=== PATIENT | male | born 1970 | race Caucasian/White ===

== ENCOUNTER 2020-08-08 18:50 | Inpatient (IN) | payer OTHER ==
[2020-08-08] MEDS ORDERED: ACETAMINOPHEN 1000 MG/100 ML VIAL (NON FORMULARY) IVPB ONE (19:27)
[2020-08-08] MEDS ORDERED: LACTATED RINGERS SOLUTION 1000 ML INFUS.BAG IV ONE (19:28)
[2020-08-08] MEDS ORDERED: DEXAMETHASONE SOD PHOSPHATE 10 MG/1 ML VIAL IVPUSH ONE (19:31)
[2020-08-08 20:54] LABS: VENOUS BASE EXCESS 1.7 mmol/L (-2-2); VENOUS O2 SATURATION 65.6 % (70-80); VENOUS PH 7.454 (7.310-7.410)
[2020-08-08 20:56] LABS: BASO % 0.4 % (0-2.0); HEMATOCRIT 41.2 % (35.4-49); HEMOGLOBIN 14.3 GM/dL (11.7-16.9); LYMPH % 6.7 % (8-40); MCH 31.9 pg (25.7-33.7); MCHC 34.6 g/dl (32.0-35.9); MEAN CELL VOLUME 92.1 fl (80-96); MEAN PLT VOLUME 10.7 fl (7.5-11.1); MONO % 7.2 % (3.8-10.2); NEUT % 85.7 % (42.8-82.8); PLATELET COUNT 185 K/MM3 (134-434); RBC 4.48 M/mm3 (4.00-5.60); RDW 12.7 % (11.9-15.9); WHITE BLOOD COUNT 7.9 K/mm3 (4.0-10.0)
[2020-08-08 21:10] LABS: INR 1.26 (0.83-1.09); PROTHROMBIN TIME (PATIENT) 15.2 SEC (9.7-13.0)
[2020-08-08 21:12] LABS: ACTIVATED PTT 27.6 SECONDS (25.2-36.5)
[2020-08-08 21:29] LABS: CHLORIDE 99 mmol/L (98-107); SODIUM 132 mmol/L (136-145)
[2020-08-08] MEDS ORDERED: ACETAMINOPHEN INJECTION 100 ML IVPB ONE (21:32)
[2020-08-08] MEDS ORDERED: DEXAMETHASONE SOD PHOSPHATE 10 MG/1 ML VIAL ONE (21:32)
[2020-08-08 21:34] LABS: ANION GAP 8 MMOL/L (8-16); BLOOD UREA NITROGEN 16.5 mg/dL (7-18); CO2 25 mmol/L (21-32); GLUCOSE,RANDOM 122 mg/dL (74-106)
[2020-08-08 21:35] LABS: BILIRUBIN,DIRECT 0.2 mg/dL (0.0-0.2)
[2020-08-08 21:37] LABS: SGOT/AST 44 U/L (15-37); SGPT/ALT 55 U/L (13-61)
[2020-08-08 21:38] LABS: BILIRUBIN,TOTAL 0.7 mg/dL (0.2-1); TOT PROT 6.8 g/dl (6.4-8.2)
[2020-08-08 21:39] LABS: ALK PHOS 53 U/L (45-117)
[2020-08-08] MEDS ORDERED: AZITHROMYCIN IVPB 500 MG in DEXTROSE 5%-WATER - 250 ML IVPB ONE (21:51)
[2020-08-08] MEDS ORDERED: CEFTRIAXONE 1,000 MG in DEXTROSE 5%-WATER - 50 ML IVPB ONE (21:51)
[2020-08-08 22:15] LABS: LDH 385 U/L (87-246)
[2020-08-08] MEDS ORDERED: SODIUM CHLORIDE 500 ML IV STA (22:51)
[2020-08-08] MEDS ORDERED: ACETAMINOPHEN 325 MG TABLET (FP) PO PRN (22:51)
[2020-08-08] MEDS ORDERED: AZITHROMYCIN IVPB 500 MG/250 ML BAG IVPB ONE (22:56)
[2020-08-08] MEDS ORDERED: CEFTRIAXONE 1 GM/50 ML BAG ONE (22:56)
[2020-08-09 00:55] VITALS: BMI 27.8
[2020-08-09 08:12] LABS: HEMATOCRIT 38.3 % (35.4-49); HEMOGLOBIN 13.4 GM/dL (11.7-16.9); MCH 31.9 pg (25.7-33.7); MEAN CELL VOLUME 91.2 fl (80-96); MEAN PLT VOLUME 10.4 fl (7.5-11.1); PLATELET COUNT 196 K/MM3 (134-434); RDW 12.3 % (11.9-15.9); WHITE BLOOD COUNT 6.9 K/mm3 (4.0-10.0)
[2020-08-09 08:42] LABS: BLOOD UREA NITROGEN 14.5 mg/dL (7-18); CALCIUM 7.9 mg/dL (8.5-10.1)
[2020-08-09 08:43] LABS: ALBUMIN 2.7 g/dl (3.4-5.0); MAGNESIUM 2.6 mg/dL (1.8-2.4)
[2020-08-09 08:47] LABS: BILIRUBIN,TOTAL 0.5 mg/dL (0.2-1); CREATININE 0.8 mg/dL (0.55-1.3); PHOSPHOROUS 2.8 mg/dL (2.5-4.9)
[2020-08-09 08:48] LABS: TOT PROT 6.2 g/dl (6.4-8.2)
[2020-08-09] MEDS ORDERED: CHOLECALCIFEROL (VIT D3) 400 UNIT (10 MCG) TABLET PO SCH (10:00)
[2020-08-09] MEDS ORDERED: PT OWN MED DRAWER 7, Y5N ONE ×2 (11:16→11:26)
[2020-08-09] MEDS: ZINC SULFATE 220 MG CAPSULE (FP) PO SCH (11:19)
[2020-08-09] MEDS: FAMOTIDINE 20 MG TABLET PO SCH (11:19)
[2020-08-09] MEDS: DEXAMETHASONE SOD PHOSPHATE 10 MG/1 ML VIAL IVPUSH SCH (11:19)
[2020-08-09] MEDS: ASCORBIC ACID 500 MG TABLET (FP) PO SCH (11:19)
[2020-08-09] MEDS: ENOXAPARIN NA (PORCINE) 40 MG/0.4 ML DISP.SYRIN SQ SCH (11:20)
[2020-08-09] MEDS: BUDESONIDE/FORMETEROL FUMARATE 160/4.5 mcg INHALER IH SCH ×2 (11:28→21:23)
[2020-08-09] MEDS: ALBUTEROL SO4 HFA INHALER IH SCH ×3 (11:29→19:56)
[2020-08-09] MEDS ORDERED: REMDESIVIR 200 MG in SODIUM CHLORIDE 250 ML IVPB ONE (12:00)
[2020-08-10] MEDS: ALBUTEROL SO4 HFA INHALER IH SCH ×4 (07:52→21:35)
[2020-08-10 08:39] LABS: BASO % 0.1 % (0-2.0); HEMATOCRIT 39.1 % (35.4-49); HEMOGLOBIN 13.3 GM/dL (11.7-16.9); LYMPH % 4.1 % (8-40); MCH 31.8 pg (25.7-33.7); MEAN CELL VOLUME 93.5 fl (80-96); MEAN PLT VOLUME 11.1 fl (7.5-11.1); MONO % 4.4 % (3.8-10.2); NEUT % 91.4 % (42.8-82.8); PLATELET COUNT 251 K/MM3 (134-434); RBC 4.18 M/mm3 (4.00-5.60); RDW 12.7 % (11.9-15.9); WHITE BLOOD COUNT 16.5 K/mm3 (4.0-10.0)
[2020-08-10 09:04] LABS: CALCIUM 7.7 mg/dL (8.5-10.1)
[2020-08-10 09:05] LABS: ALBUMIN 2.7 g/dl (3.4-5.0); BLOOD UREA NITROGEN 16.1 mg/dL (7-18); MAGNESIUM 2.4 mg/dL (1.8-2.4)
[2020-08-10 09:06] LABS: CREATININE 0.8 mg/dL (0.55-1.3); PHOSPHOROUS 3.3 mg/dL (2.5-4.9)
[2020-08-10 09:08] LABS: BILIRUBIN,TOTAL 0.5 mg/dL (0.2-1); TOT PROT 6.2 g/dl (6.4-8.2)
[2020-08-10] MEDS ORDERED: PT OWN MED DRAWER 7, Y5N ONE (10:02)
[2020-08-10] MEDS: ASCORBIC ACID 500 MG TABLET (FP) PO SCH (10:05)
[2020-08-10] MEDS: CHOLECALCIFEROL (VIT D3) 1,000 UNIT (25 MCG) TABLET PO SCH (10:05)
[2020-08-10] MEDS: FAMOTIDINE 20 MG TABLET PO SCH (10:05)
[2020-08-10] MEDS: ZINC SULFATE 220 MG CAPSULE (FP) PO SCH (10:05)
[2020-08-10] MEDS: DEXAMETHASONE SOD PHOSPHATE 10 MG/1 ML VIAL IVPUSH SCH (10:06)
[2020-08-10] MEDS: BUDESONIDE/FORMETEROL FUMARATE 160/4.5 mcg INHALER IH SCH ×2 (10:06→21:36)
[2020-08-10] MEDS: ENOXAPARIN NA (PORCINE) 40 MG/0.4 ML DISP.SYRIN SQ SCH (10:07)
[2020-08-10 11:25] LABS: ANISOCYTOSIS 1+; MACROCYTOSIS 1+; PLATELET ESTIMATE NORMAL
[2020-08-10] MEDS: REMDESIVIR 100 MG in SODIUM CHLORIDE 250 ML IVPB SCH (11:41)
[2020-08-11] MEDS ORDERED: SODIUM CHLORIDE 500 ML IV STA (07:18)
[2020-08-11] MEDS: ENOXAPARIN NA (PORCINE) 40 MG/0.4 ML DISP.SYRIN SQ SCH (09:01)
[2020-08-11] MEDS: DEXAMETHASONE SOD PHOSPHATE 10 MG/1 ML VIAL IVPUSH SCH (09:02)
[2020-08-11] MEDS: ZINC SULFATE 220 MG CAPSULE (FP) PO SCH (09:02)
[2020-08-11] MEDS: CHOLECALCIFEROL (VIT D3) 1,000 UNIT (25 MCG) TABLET PO SCH (09:02)
[2020-08-11] MEDS: FAMOTIDINE 20 MG TABLET PO SCH (09:02)
[2020-08-11] MEDS: ALBUTEROL SO4 HFA INHALER IH SCH ×4 (09:13→21:08)
[2020-08-11] MEDS: BUDESONIDE/FORMETEROL FUMARATE 160/4.5 mcg INHALER IH SCH ×2 (09:14→21:09)
[2020-08-11 09:18] LABS: HEMATOCRIT 42.2 % (35.4-49); HEMOGLOBIN 14.3 GM/dL (11.7-16.9); MCH 31.8 pg (25.7-33.7); MEAN CELL VOLUME 93.6 fl (80-96); PLATELET COUNT 305 K/MM3 (134-434); RBC 4.51 M/mm3 (4.00-5.60); RDW 12.8 % (11.9-15.9); WHITE BLOOD COUNT 15.7 K/mm3 (4.0-10.0)
[2020-08-11 10:12] LABS: CALCIUM 8.4 mg/dL (8.5-10.1)
[2020-08-11 10:13] LABS: BLOOD UREA NITROGEN 19.8 mg/dL (7-18); MAGNESIUM 2.4 mg/dL (1.8-2.4)
[2020-08-11 10:16] LABS: CREATININE 0.8 mg/dL (0.55-1.3)
[2020-08-11 10:17] LABS: BILIRUBIN,TOTAL 0.7 mg/dL (0.2-1); TOT PROT 6.5 g/dl (6.4-8.2)
[2020-08-11] MEDS: ASCORBIC ACID 500 MG TABLET (FP) PO SCH (10:34)
[2020-08-11] MEDS: REMDESIVIR 100 MG in SODIUM CHLORIDE 250 ML IVPB SCH (11:25)
[2020-08-12] MEDS: ALBUTEROL SO4 HFA INHALER IH SCH ×4 (08:17→21:59)
[2020-08-12 08:42] LABS: BASO % 0.1 % (0-2.0); EOS % 0.1 % (0-4.5); HEMATOCRIT 42.3 % (35.4-49); HEMOGLOBIN 14.3 GM/dL (11.7-16.9); LYMPH % 5.4 % (8-40); MCH 31.5 pg (25.7-33.7); MCHC 33.7 g/dl (32.0-35.9); MEAN CELL VOLUME 93.4 fl (80-96); MONO % 4.7 % (3.8-10.2); NEUT % 89.7 % (42.8-82.8); PLATELET COUNT 328 K/MM3 (134-434); RBC 4.53 M/mm3 (4.00-5.60); RDW 12.7 % (11.9-15.9); WHITE BLOOD COUNT 16.7 K/mm3 (4.0-10.0)
[2020-08-12 09:10] LABS: ALBUMIN 2.8 g/dl (3.4-5.0); BLOOD UREA NITROGEN 18.1 mg/dL (7-18)
[2020-08-12 09:11] LABS: BILIRUBIN,TOTAL 0.7 mg/dL (0.2-1)
[2020-08-12 09:13] LABS: CREATININE 0.9 mg/dL (0.55-1.3)
[2020-08-12 09:14] LABS: CALCIUM 8.3 mg/dL (8.5-10.1)
[2020-08-12] MEDS: ENOXAPARIN NA (PORCINE) 40 MG/0.4 ML DISP.SYRIN SQ SCH (09:20)
[2020-08-12] MEDS: ZINC SULFATE 220 MG CAPSULE (FP) PO SCH (09:20)
[2020-08-12] MEDS: CHOLECALCIFEROL (VIT D3) 1,000 UNIT (25 MCG) TABLET PO SCH (09:20)
[2020-08-12] MEDS: FAMOTIDINE 20 MG TABLET PO SCH (09:20)
[2020-08-12] MEDS: ASCORBIC ACID 500 MG TABLET (FP) PO SCH (09:20)
[2020-08-12] MEDS: DEXAMETHASONE SOD PHOSPHATE 10 MG/1 ML VIAL IVPUSH SCH (09:21)
[2020-08-12] MEDS: BUDESONIDE/FORMETEROL FUMARATE 160/4.5 mcg INHALER IH SCH ×2 (09:22→21:59)
[2020-08-12] MEDS: REMDESIVIR 100 MG in SODIUM CHLORIDE 250 ML IVPB SCH (12:00)
[2020-08-13] MEDS: ALBUTEROL SO4 HFA INHALER IH SCH ×4 (08:00→21:03)
[2020-08-13 08:48] LABS: BASO % 0.1 % (0-2.0); EOS % 0.9 % (0-4.5); HEMATOCRIT 41.4 % (35.4-49); HEMOGLOBIN 14.3 GM/dL (11.7-16.9); LYMPH % 5.5 % (8-40); MCH 32.5 pg (25.7-33.7); MCHC 34.4 g/dl (32.0-35.9); MEAN CELL VOLUME 94.5 fl (80-96); MEAN PLT VOLUME 9.5 fl (7.5-11.1); MONO % 4.3 % (3.8-10.2); NEUT % 89.2 % (42.8-82.8); PLATELET COUNT 352 K/MM3 (134-434); RBC 4.38 M/mm3 (4.00-5.60); RDW 12.7 % (11.9-15.9); WHITE BLOOD COUNT 15.2 K/mm3 (4.0-10.0)
[2020-08-13 09:18] LABS: ALBUMIN 2.7 g/dl (3.4-5.0); BLOOD UREA NITROGEN 18.6 mg/dL (7-18); CALCIUM 8.5 mg/dL (8.5-10.1)
[2020-08-13 09:19] LABS: MAGNESIUM 2.2 mg/dL (1.8-2.4)
[2020-08-13 09:21] LABS: CREATININE 0.9 mg/dL (0.55-1.3); PHOSPHOROUS 4.4 mg/dL (2.5-4.9)
[2020-08-13 09:23] LABS: BILIRUBIN,TOTAL 0.8 mg/dL (0.2-1); TOT PROT 6.1 g/dl (6.4-8.2)
[2020-08-13] MEDS: ZINC SULFATE 220 MG CAPSULE (FP) PO SCH (11:27)
[2020-08-13] MEDS: FAMOTIDINE 20 MG TABLET PO SCH (11:27)
[2020-08-13] MEDS: CHOLECALCIFEROL (VIT D3) 1,000 UNIT (25 MCG) TABLET PO SCH (11:27)
[2020-08-13] MEDS: ASCORBIC ACID 500 MG TABLET (FP) PO SCH (11:27)
[2020-08-13] MEDS: ENOXAPARIN NA (PORCINE) 40 MG/0.4 ML DISP.SYRIN SQ SCH (11:28)
[2020-08-13] MEDS: DEXAMETHASONE SOD PHOSPHATE 10 MG/1 ML VIAL IVPUSH SCH (11:28)
[2020-08-13] MEDS: BUDESONIDE/FORMETEROL FUMARATE 160/4.5 mcg INHALER IH SCH ×2 (11:29→21:03)
[2020-08-13] MEDS: REMDESIVIR 100 MG in SODIUM CHLORIDE 250 ML IVPB SCH (13:19)
[2020-08-14 09:01] LABS: BASO % 0.1 % (0-2.0); EOS % 1.1 % (0-4.5); HEMATOCRIT 42.2 % (35.4-49); HEMOGLOBIN 14.5 GM/dL (11.7-16.9); LYMPH % 4.8 % (8-40); MCH 32.3 pg (25.7-33.7); MCHC 34.4 g/dl (32.0-35.9); MEAN CELL VOLUME 93.8 fl (80-96); MONO % 5.1 % (3.8-10.2); NEUT % 88.9 % (42.8-82.8); PLATELET COUNT 388 K/MM3 (134-434); RDW 12.8 % (11.9-15.9); WHITE BLOOD COUNT 15.5 K/mm3 (4.0-10.0)
[2020-08-14] MEDS: ALBUTEROL SO4 HFA INHALER IH SCH ×4 (09:27→21:00)
[2020-08-14] MEDS: ZINC SULFATE 220 MG CAPSULE (FP) PO SCH (09:28)
[2020-08-14] MEDS: BUDESONIDE/FORMETEROL FUMARATE 160/4.5 mcg INHALER IH SCH ×2 (09:28→23:00)
[2020-08-14] MEDS: ASCORBIC ACID 500 MG TABLET (FP) PO SCH (09:28)
[2020-08-14] MEDS: ENOXAPARIN NA (PORCINE) 40 MG/0.4 ML DISP.SYRIN SQ SCH (09:28)
[2020-08-14] MEDS: FAMOTIDINE 20 MG TABLET PO SCH (09:28)
[2020-08-14] MEDS: DEXAMETHASONE SOD PHOSPHATE 10 MG/1 ML VIAL IVPUSH SCH (09:28)
[2020-08-14] MEDS: CHOLECALCIFEROL (VIT D3) 1,000 UNIT (25 MCG) TABLET PO SCH (09:28)
[2020-08-14 09:56] LABS: BILIRUBIN,TOTAL 0.7 mg/dL (0.2-1)
[2020-08-14 09:59] LABS: ALBUMIN 2.8 g/dl (3.4-5.0)
[2020-08-14 10:00] LABS: BLOOD UREA NITROGEN 18.5 mg/dL (7-18)
[2020-08-14 10:03] LABS: CREATININE 0.8 mg/dL (0.55-1.3)
[2020-08-14 10:05] LABS: TOT PROT 6.2 g/dl (6.4-8.2)
[2020-08-14 10:09] LABS: MAGNESIUM 2.3 mg/dL (1.8-2.4)
[2020-08-14 10:11] LABS: CALCIUM 8.4 mg/dL (8.5-10.1)
[2020-08-15 08:45] LABS: HEMATOCRIT 42.8 % (35.4-49); HEMOGLOBIN 14.4 GM/dL (11.7-16.9); MCH 31.9 pg (25.7-33.7); MCHC 33.7 g/dl (32.0-35.9); MEAN CELL VOLUME 94.7 fl (80-96); PLATELET COUNT 361 K/MM3 (134-434); RBC 4.52 M/mm3 (4.00-5.60); RDW 12.6 % (11.9-15.9); WHITE BLOOD COUNT 16.7 K/mm3 (4.0-10.0)
[2020-08-15] MEDS: ALBUTEROL SO4 HFA INHALER IH SCH ×4 (09:00→20:30)
[2020-08-15 09:22] LABS: CREATININE 0.7 mg/dL (0.55-1.3)
[2020-08-15 09:25] LABS: CALCIUM 8.4 mg/dL (8.5-10.1)
[2020-08-15 09:27] LABS: MAGNESIUM 2.3 mg/dL (1.8-2.4)
[2020-08-15 09:33] LABS: BLOOD UREA NITROGEN 17.4 mg/dL (7-18)
[2020-08-15] MEDS: BUDESONIDE/FORMETEROL FUMARATE 160/4.5 mcg INHALER IH SCH ×2 (11:00→21:19)
[2020-08-15] MEDS: ENOXAPARIN NA (PORCINE) 40 MG/0.4 ML DISP.SYRIN SQ SCH (11:00)
[2020-08-15] MEDS: CHOLECALCIFEROL (VIT D3) 1,000 UNIT (25 MCG) TABLET PO SCH (11:00)
[2020-08-15] MEDS: DEXAMETHASONE SOD PHOSPHATE 10 MG/1 ML VIAL IVPUSH SCH (11:00)
[2020-08-15] MEDS: ASCORBIC ACID 500 MG TABLET (FP) PO SCH (11:08)
[2020-08-15] MEDS: ZINC SULFATE 220 MG CAPSULE (FP) PO SCH (11:08)
[2020-08-15] MEDS: FAMOTIDINE 20 MG TABLET PO SCH (11:24)
[2020-08-16] MEDS: ALBUTEROL SO4 HFA INHALER IH SCH ×3 (08:28→20:00)
[2020-08-16 09:04] LABS: HEMATOCRIT 42.3 % (35.4-49); HEMOGLOBIN 14.5 GM/dL (11.7-16.9); MCH 32.3 pg (25.7-33.7); MCHC 34.3 g/dl (32.0-35.9); MEAN CELL VOLUME 94.2 fl (80-96); MEAN PLT VOLUME 9.5 fl (7.5-11.1); PLATELET COUNT 351 K/MM3 (134-434); RBC 4.49 M/mm3 (4.00-5.60); RDW 12.6 % (11.9-15.9); WHITE BLOOD COUNT 15.7 K/mm3 (4.0-10.0)
[2020-08-16 09:24] LABS: BLOOD UREA NITROGEN 21.1 mg/dL (7-18)
[2020-08-16 09:26] LABS: CALCIUM 8.6 mg/dL (8.5-10.1); MAGNESIUM 2.2 mg/dL (1.8-2.4)
[2020-08-16 09:27] LABS: CREATININE 0.8 mg/dL (0.55-1.3); PHOSPHOROUS 3.9 mg/dL (2.5-4.9)
[2020-08-16] MEDS: DEXAMETHASONE SOD PHOSPHATE 10 MG/1 ML VIAL IVPUSH SCH (09:58)
[2020-08-16] MEDS: CHOLECALCIFEROL (VIT D3) 1,000 UNIT (25 MCG) TABLET PO SCH (09:58)
[2020-08-16] MEDS: ZINC SULFATE 220 MG CAPSULE (FP) PO SCH (09:58)
[2020-08-16] MEDS: FAMOTIDINE 20 MG TABLET PO SCH (09:58)
[2020-08-16] MEDS: ENOXAPARIN NA (PORCINE) 40 MG/0.4 ML DISP.SYRIN SQ SCH (09:58)
[2020-08-16] MEDS: ASCORBIC ACID 500 MG TABLET (FP) PO SCH (09:58)
[2020-08-16] MEDS: BUDESONIDE/FORMETEROL FUMARATE 160/4.5 mcg INHALER IH SCH ×2 (10:03→22:00)
[2020-08-17 09:03] LABS: HEMATOCRIT 42.1 % (35.4-49); HEMOGLOBIN 14.6 GM/dL (11.7-16.9); MCH 32.2 pg (25.7-33.7); MCHC 34.6 g/dl (32.0-35.9); MEAN PLT VOLUME 9.4 fl (7.5-11.1); PLATELET COUNT 338 K/MM3 (134-434); RBC 4.53 M/mm3 (4.00-5.60); RDW 12.5 % (11.9-15.9); WHITE BLOOD COUNT 15.4 K/mm3 (4.0-10.0)
[2020-08-17 09:36] LABS: BLOOD UREA NITROGEN 16.9 mg/dL (7-18); CALCIUM 8.8 mg/dL (8.5-10.1); MAGNESIUM 2.3 mg/dL (1.8-2.4)
[2020-08-17 09:40] LABS: CREATININE 0.8 mg/dL (0.55-1.3)
[2020-08-17] MEDS: CHOLECALCIFEROL (VIT D3) 1,000 UNIT (25 MCG) TABLET PO SCH (10:15)
[2020-08-17] MEDS: ZINC SULFATE 220 MG CAPSULE (FP) PO SCH (10:15)
[2020-08-17] MEDS: FAMOTIDINE 20 MG TABLET PO SCH (10:16)
[2020-08-17] MEDS: ASCORBIC ACID 500 MG TABLET (FP) PO SCH (10:16)
[2020-08-17] MEDS: BUDESONIDE/FORMETEROL FUMARATE 160/4.5 mcg INHALER IH SCH ×2 (10:16→22:55)
[2020-08-17] MEDS: DEXAMETHASONE SOD PHOSPHATE 10 MG/1 ML VIAL IVPUSH SCH (10:17)
[2020-08-17] MEDS: ALBUTEROL SO4 HFA INHALER IH SCH ×3 (10:17→21:00)
[2020-08-17] MEDS: ENOXAPARIN NA (PORCINE) 40 MG/0.4 ML DISP.SYRIN SQ SCH (10:17)
[2020-08-17] MEDS ORDERED: TOCILIZUMAB (ACTEMRA) 200 MG/10 ML VIAL IVPB ONE (13:26)
[2020-08-17] MEDS ORDERED: TOCILIZUMAB IVPB ONE (15:00)
[2020-08-17] MEDS ORDERED: SODIUM CHLORIDE IVPB ONE (15:00)
[2020-08-18 08:00] LABS: HEMATOCRIT 40.5 % (35.4-49); HEMOGLOBIN 14.1 GM/dL (11.7-16.9); MCH 32.3 pg (25.7-33.7); MCHC 34.8 g/dl (32.0-35.9); MEAN PLT VOLUME 9.5 fl (7.5-11.1); PLATELET COUNT 318 K/MM3 (134-434); RBC 4.36 M/mm3 (4.00-5.60); RDW 12.8 % (11.9-15.9)
[2020-08-18 08:14] LABS: BLOOD UREA NITROGEN 17.4 mg/dL (7-18); CALCIUM 8.2 mg/dL (8.5-10.1)
[2020-08-18 08:15] LABS: MAGNESIUM 2.2 mg/dL (1.8-2.4)
[2020-08-18 08:17] LABS: CREATININE 0.8 mg/dL (0.55-1.3)
[2020-08-18] MEDS: ALBUTEROL SO4 HFA INHALER IH SCH ×4 (08:48→21:11)
[2020-08-18] MEDS: DEXAMETHASONE SOD PHOSPHATE 10 MG/1 ML VIAL IVPUSH SCH (12:02)
[2020-08-18] MEDS: ENOXAPARIN NA (PORCINE) 40 MG/0.4 ML DISP.SYRIN SQ SCH (12:02)
[2020-08-18] MEDS: FAMOTIDINE 20 MG TABLET PO SCH (12:03)
[2020-08-18] MEDS: BUDESONIDE/FORMETEROL FUMARATE 160/4.5 mcg INHALER IH SCH ×2 (12:03→21:10)
[2020-08-18] MEDS: ZINC SULFATE 220 MG CAPSULE (FP) PO SCH (12:03)
[2020-08-18] MEDS: ASCORBIC ACID 500 MG TABLET (FP) PO SCH (12:03)
[2020-08-18] MEDS: CHOLECALCIFEROL (VIT D3) 1,000 UNIT (25 MCG) TABLET PO SCH (12:03)
[2020-08-19 07:51] LABS: BASO % 0.1 % (0-2.0); EOS % 0.4 % (0-4.5); HEMATOCRIT 41.5 % (35.4-49); HEMOGLOBIN 14.3 GM/dL (11.7-16.9); LYMPH % 7.4 % (8-40); MCH 32.1 pg (25.7-33.7); MCHC 34.3 g/dl (32.0-35.9); MEAN CELL VOLUME 93.6 fl (80-96); MEAN PLT VOLUME 9.4 fl (7.5-11.1); NEUT % 87.1 % (42.8-82.8); PLATELET COUNT 272 K/MM3 (134-434); RBC 4.44 M/mm3 (4.00-5.60); RDW 12.7 % (11.9-15.9); WHITE BLOOD COUNT 15.5 K/mm3 (4.0-10.0)
[2020-08-19 08:23] LABS: ALBUMIN 2.7 g/dl (3.4-5.0); CALCIUM 8.7 mg/dL (8.5-10.1)
[2020-08-19 08:26] LABS: CREATININE 0.8 mg/dL (0.55-1.3)
[2020-08-19 08:28] LABS: BILIRUBIN,TOTAL 0.4 mg/dL (0.2-1)
[2020-08-19] MEDS: ALBUTEROL SO4 HFA INHALER IH SCH ×4 (09:00→20:14)
[2020-08-19] MEDS: FAMOTIDINE 20 MG TABLET PO SCH (11:09)
[2020-08-19] MEDS: ENOXAPARIN NA (PORCINE) 40 MG/0.4 ML DISP.SYRIN SQ SCH (11:09)
[2020-08-19] MEDS: CHOLECALCIFEROL (VIT D3) 1,000 UNIT (25 MCG) TABLET PO SCH (11:09)
[2020-08-19] MEDS: DEXAMETHASONE SOD PHOSPHATE 10 MG/1 ML VIAL IVPUSH SCH (11:10)
[2020-08-19] MEDS: ASCORBIC ACID 500 MG TABLET (FP) PO SCH (11:10)
[2020-08-19] MEDS: ZINC SULFATE 220 MG CAPSULE (FP) PO SCH (11:10)
[2020-08-19] MEDS: BUDESONIDE/FORMETEROL FUMARATE 160/4.5 mcg INHALER IH SCH ×2 (11:12→21:13)
[2020-08-20 08:09] LABS: BASO % 0.1 % (0-2.0); EOS % 0.3 % (0-4.5); HEMATOCRIT 41.1 % (35.4-49); HEMOGLOBIN 14.5 GM/dL (11.7-16.9); LYMPH % 6.8 % (8-40); MCH 32.6 pg (25.7-33.7); MCHC 35.2 g/dl (32.0-35.9); MEAN CELL VOLUME 92.7 fl (80-96); MEAN PLT VOLUME 9.6 fl (7.5-11.1); MONO % 4.3 % (3.8-10.2); NEUT % 88.5 % (42.8-82.8); PLATELET COUNT 267 K/MM3 (134-434); RBC 4.43 M/mm3 (4.00-5.60); RDW 12.8 % (11.9-15.9); WHITE BLOOD COUNT 17.9 K/mm3 (4.0-10.0)
[2020-08-20] MEDS: ALBUTEROL SO4 HFA INHALER IH SCH ×4 (08:15→21:42)
[2020-08-20 08:30] LABS: CHLORIDE 102 mmol/L (98-107); SODIUM 137 mmol/L (136-145)
[2020-08-20 08:35] LABS: ANION GAP 4 MMOL/L (8-16); BLOOD UREA NITROGEN 16.1 mg/dL (7-18); CALCIUM 8.8 mg/dL (8.5-10.1); CO2 31 mmol/L (21-32); GLUCOSE,RANDOM 110 mg/dL (74-106)
[2020-08-20 08:38] LABS: CREATININE 0.8 mg/dL (0.55-1.3)
[2020-08-20 08:39] LABS: LDH 278 U/L (87-246)
[2020-08-20] MEDS: CHOLECALCIFEROL (VIT D3) 1,000 UNIT (25 MCG) TABLET PO SCH (09:03)
[2020-08-20] MEDS: FAMOTIDINE 20 MG TABLET PO SCH (09:03)
[2020-08-20] MEDS: ASCORBIC ACID 500 MG TABLET (FP) PO SCH (09:03)
[2020-08-20] MEDS: ZINC SULFATE 220 MG CAPSULE (FP) PO SCH (09:03)
[2020-08-20] MEDS: DEXAMETHASONE SOD PHOSPHATE 10 MG/1 ML VIAL IVPUSH SCH (09:03)
[2020-08-20] MEDS: ENOXAPARIN NA (PORCINE) 40 MG/0.4 ML DISP.SYRIN SQ SCH (09:04)
[2020-08-20] MEDS: BUDESONIDE/FORMETEROL FUMARATE 160/4.5 mcg INHALER IH SCH ×2 (09:04→21:42)
[2020-08-21] MEDS: ALBUTEROL SO4 HFA INHALER IH SCH ×4 (08:58→21:00)
[2020-08-21] MEDS: BUDESONIDE/FORMETEROL FUMARATE 160/4.5 mcg INHALER IH SCH ×2 (08:59→21:47)
[2020-08-21] MEDS: CHOLECALCIFEROL (VIT D3) 1,000 UNIT (25 MCG) TABLET PO SCH (08:59)
[2020-08-21] MEDS: DEXAMETHASONE SOD PHOSPHATE 10 MG/1 ML VIAL IVPUSH SCH (08:59)
[2020-08-21] MEDS: ZINC SULFATE 220 MG CAPSULE (FP) PO SCH (08:59)
[2020-08-21] MEDS: FAMOTIDINE 20 MG TABLET PO SCH (08:59)
[2020-08-21] MEDS: ASCORBIC ACID 500 MG TABLET (FP) PO SCH (08:59)
[2020-08-21] MEDS: ENOXAPARIN NA (PORCINE) 40 MG/0.4 ML DISP.SYRIN SQ SCH (08:59)
[2020-08-22 08:57] LABS: HEMATOCRIT 41.6 % (35.4-49); HEMOGLOBIN 14.4 GM/dL (11.7-16.9); MCH 32.3 pg (25.7-33.7); MCHC 34.5 g/dl (32.0-35.9); MEAN CELL VOLUME 93.5 fl (80-96); MEAN PLT VOLUME 9.5 fl (7.5-11.1); PLATELET COUNT 266 K/MM3 (134-434); RBC 4.45 M/mm3 (4.00-5.60)
[2020-08-22] MEDS: ALBUTEROL SO4 HFA INHALER IH SCH ×2 (09:00→11:24)
[2020-08-22] MEDS: ENOXAPARIN NA (PORCINE) 40 MG/0.4 ML DISP.SYRIN SQ SCH (11:23)
[2020-08-22] MEDS: ASCORBIC ACID 500 MG TABLET (FP) PO SCH (11:24)
[2020-08-22] MEDS: DEXAMETHASONE SOD PHOSPHATE 10 MG/1 ML VIAL IVPUSH SCH (11:24)
[2020-08-22] MEDS: FAMOTIDINE 20 MG TABLET PO SCH (11:24)
[2020-08-22] MEDS: CHOLECALCIFEROL (VIT D3) 1,000 UNIT (25 MCG) TABLET PO SCH (11:24)
[2020-08-22] MEDS: BUDESONIDE/FORMETEROL FUMARATE 160/4.5 mcg INHALER IH SCH (11:24)
[2020-08-22] MEDS: ZINC SULFATE 220 MG CAPSULE (FP) PO SCH (11:24)
[2020-08-22 12:36] VITALS: PULSE 92
[2020-08-22 15:49] VITALS: BP 116/64; TEMP 97.2
== END 2020-08-22 16:34 | disposition left against medical advice (07) | DRG 137 ==
LOC: JER 18:50 → JERBED 21:52 → J8W 08-09 00:23 → J4S 08-15 19:47 → J8W 08-15 20:24
PROVIDERS: ADMIT Hospitalist; ATTEND Internal Medicine
PROC: XW033E5 Introduction of Remdesivir Anti-infective into Peripheral Vein, Percutaneous Approach, New Technology Group 5 (ICD-10-PCS; principal; 2020-08-09)
PROC: XW033H5 Introduction of Tocilizumab into Peripheral Vein, Percutaneous Approach, New Technology Group 5 (ICD-10-PCS; 2020-08-17)
DX: U07.1 COVID-19 (principal); J96.01 Acute respiratory failure with hypoxia; J12.82 Pneumonia due to coronavirus disease 2019; E87.1 Hypo-osmolality and hyponatremia; R74.01 Elevation of levels of liver transaminase levels
CPT/HCPCS: 36415; 71045-TC-FY; 80048; 80053; 82248; 82550; 82728; 82803; 83605; 83615; 83735; 84100; 84484; 85025; 85027; 85379; 85610; 85730; 86140; 86769; 87040; 87804; 93005; 93010; 94010; 94761; 99285-25; C9399; C9803; J0131; J1100; J3262; U0003; U0005